=== PATIENT | female | born 1930 | race Caucasian/White ===

== ENCOUNTER 2016-07-17 16:25 | Emergency (ER) | payer MEDICARE ==
[~2016-07-17] VITALS: Ht 170.2 cm; Wt 110.9 kg
[2016-07-17 16:33] VITALS: BP 124/73; PULSE 72; RESP 20; O2SAT 95
--- NOTE | 2016-07-17 18:35 | DRSVH ---
PROCEDURE: X-RAY CHEST, TWO VIEWS ([id number]) INDICATIONS: cough x2 wks TECHNIQUE: 2 views of the chest were acquired. COMPARISON: None. FINDINGS: Surgical changes and devices: None. Lungs and pleura: No pleural effusions or pneumothorax. Lungs are clear. Mediastinum: Mediastinal contours are normal. Heart size is normal. Bones and chest wall: No suspicious bony abnormalities. Soft tissues appear unremarkable. IMPRESSION: No acute disease Dictated by: Mikie Jacobsen M.D. on 07/17/2016 at 18:34 Approved by: Mikie Jacobsen M.D. on 07/17/2016 at 18:34
--- NOTE | 2016-07-17 19:40 | ED.REPORT ---
HPI-General Illness Date of Service Jul 17, 2016 ED Provider: Gigi Bosch DO An 86 year old female with a history of hypertension presents to the ED complaining of a dry cough. This is accompanied by weakness, lethargy, and a lack of appetite. These symptoms began two weeks ago and have been persistent since. The cough is present regardless of the pt's activity level or position. She denies productive cough, fever, vomiting, diarrhea, chest pain, or shortness of breath, as well as any history of asthma or emphysema. The pt was seen by her PCP and prescribed two rounds of different antibiotics, neither of which has improved her condition. Nursing Notes Stated Complaint: COUGH Chief Complaint: FLU/Cold Symptoms Nursing Notes Reviewed: Yes Allergies: Coded Allergies: Sulfa (Sulfonamide Antibiotics) (Verified Allergy, Unknown, 07/17/16) General Time Seen by MD: 19:40 Chief Complaint Cough Hx Obtained From: Patient Arrived By: Walk-in Sudden in Onset?: No Onset Occurred: More than a week ago... (2 weeks) Symptom Duration: Since onset Recent Healthcare: No recent hospitalization, Recent doctor visit Similar Sx Previous: No Past Medical History Past Medical History hypertension Past Surgical History right hip replacement Smoking History Unknown if Ever Smoker Social History Other Social History: Good social support Ambulatory Status Independent Review of Systems loss of appetite Full Review of Systems Constitutional: Reports: Lethargy, Weakness - generalized, Denies: Fever Respiratory: Reports: Non-productive cough, Denies: Prod cough, clear, Shortness of breath Cardiovascular: Denies: Chest pain GI: Denies: Diarrhea, Nausea, Vomiting Musculoskeletal: Denies: Back pain, Neck pain Skin: Denies Rash Complete sys rev & neg: except as marked. Physical Exam Vital Signs Vital Signs Date Time Temp Pulse Resp B/P Pulse Ox O2 Delivery O2 Flow Rate FiO2 07/17/16 23:15 36.8 88 22 127/85 96 Room Air 07/17/16 21:30 36.7 75 17 122/57 95 Room Air 07/17/16 20:54 71 20 97 Room Air 07/17/16 16:33 36.7 72 20 124/73 95 Room Air Initial VS: Reviewed General/Constitutional: Awake, Alert Head / Eyes: Atraumatic, Normocephalic, PERRL, EOMI ENT: Atraumatic, Airway patent, Mucous membranes moist Neck: Atraumatic, Supple, Full range of motion Respiratory / Chest: Atraumatic, Breath sounds = bilat, No respiratory distress wheezing in all lung baer Cardiovascular: Heart rate NL, Regular rhythm, Heart sounds NL Abdomen: Atraumatic, Soft, Non-tender Back: Atraumatic, Full range of motion Upper Extremities Upper Extremity / MS: Atraumatic, Full range of motion Lower Extremity / Pelvis / MS: Atraumatic, Full range of motion Skin: Atraumatic, Color NL, No rash, Warm, Dry Neurologic: Oriented X3, Speech NL, No motor deficits, No sensory deficits Psychiatric: Affect NL, Mood NL Interpretation & Diagnostics Lab Results Interpretation Result Diagram: 07/17/16210107/17/162101 Test 07/17/16 21:02 White Blood Count 7.5th/mm3 (3.8-10.1) Red Blood Count 4.41mil/mm3 (3.90-5.20) Hemoglobin 14.4g/dL (12.0-15.6) Hematocrit 41.8% (35.0-46.0) Mean Corpuscular Volume 94.8fL (81-100) Mean Corpuscular Hemoglobin 32.7pg (27.0-35.0) Mean Corpuscular Hemoglobin Concent 34.4% (32.0-37.0) Red Cell Distribution Width 12.9% (12.3-15.4) Platelet Count 177bil/L (150-400) Neutrophils (%) (Auto) 52.8% (40-74) Lymphocytes (%) (Auto) 36.2% (14-46) Monocytes (%) (Auto) 8.5% (4-12) Eosinophils (%) (Auto) 1.7% (0-5) Basophils (%) (Auto) 0.7% (0-3) D-Dimer < 0.5mg/L (<0.50) Sodium Level 136mEq/L (134-144) Potassium Level 3.3mEq/L (3.5-5.2) Chloride Level 91mEq/L (97-108) Carbon Dioxide Level 26mmol/L (18-29) Blood Urea Nitrogen 26mg/dL (8-27) Creatinine 1.11mg/dL (0.57-1.00) Estimat Glomerular Filtration Rate 67mL/min (>59) Glucose Level 127mg/dL (60-99) Lactic Acid Level 2.4mmol/L (0.4-2.0) Calcium Level 8.9mg/dL (8.5-10.1) Magnesium Level 1.8mg/dL (1.6-2.6) Total Bilirubin 0.8mg/dL (0.0-1.2) Aspartate Amino Transf (AST/SGOT) 26U/L (0-50) Alanine Aminotransferase (ALT/SGPT) 20U/L (0-32) Alkaline Phosphatase 83U/L (25-165) Troponin T 0.010ug/L (0.0-0.011) Pro-B-Type Natriuretic Peptide 291.3pg/mL (0-738) Total Protein 7.4g/dL (6.4-8.4) Albumin 3.6g/dL (3.4-5.0) Lipase 23U/L (13-60) Procalcitonin 0.07ng/mL (0.00-0.08) Pulse Oximetry Interpretation Pulse Oximetry Interpretation: 95% on room air ECG Interpretation ECG Interpretation: normal sinus rhythm with a rate of 85 atrial premature complexes in couplets Time: 20:05 Interpreted by: ED physician X-Ray Chest Interpretation Chest Xray Interpretation: IMPRESSION: No acute disease Dictated by: Mikie Jacobsen M.D. on 07/17/2016 at 18:34 Approved by: Mikie Jacobsen M.D. on 07/17/2016 at 18:34 Interpretation / Wet Read by: Interpret - Radiologist Re-Eval/Medical Decision Med Decision/Clinical Course This is a delightful 86-year-old female who presents with cough. She has been coughing intermittently for at least 2 weeks. Her doctors placed her in 2 courses of antibiotics. She still has a cough that at times is productive sputum. She has no chest pain. She has no shortness of breath. There does not appear to be any exertional component to her cough. She will cough a bit more at nighttime but not necessarily when she is lying down. On examination she had stable vitals. She had wheezing crackles in both upper lung baer. Respiratory exam was very benign. She did not have JVD. She did not have an S3 gallop. She did not have hepatojugular reflex. She does not have extremity edema consistent with heart failure. X-ray was reassuring. D-dimer was negative. Troponin was negative and again this is after 2 weeks of symptoms. BNP was not markedly elevated. No signs of heart failure, pulmonary why her MD. She responded nicely to a DuoNeb. I think she has bronchitis with bronchospasm. I will place her on a course of Omnicef because she has been on a macrolide twice now. Short course of prednisone as well as an inhaler and I recommend close outpatient follow-up. She felt much better at discharge and her lungs were essentially clear. No signs sepsis. Time of Eval: 22:38 Patient Status: Condition improved Re-Evaluation/Progress Note: Pt rechecked, who is feeling much better and prepared for discharge. The plan for discharge is discussed. The pt understands and agrees with the plan. All questions are addressed at this time. Counseled Regarding: Diagnosis, Lab results, Need for follow-up, When/why to return to ED Discharge & Departure Primary Impression: Upper respiratory infection URI type: acute laryngotracheitis Qualified Code: J04.2 - Acute laryngotracheitis Disposition: Home Discharge Condition All VS Reviewed: Yes Condition: Stable Patient Instructions: Acute Bronchitis (DC) Additional Instructions: Take Omnicef twice daily for 7 days. Prednisone daily for 3 days. Albuterol 2 puffs every 2-3 hours for cough and wheezing. [place] one every 6 hours if the cough is severe. Do not drive or drink alcohol or consume acetaminophen while taking the [place]. The [place] can and will be constipating so take with a stool softener. Call your primary care physician in the morning to set up a follow- up. Return if any problems or any worsening symptoms. The heart blood tests and chest x-ray were all reassuring. Your blood clot blood test was negative. Referrals: Jahaira Hickman MD (PCP) Scribe Attestation Portions of this note were transcribed by Susy Ascencio. I, Dr. Bosch personally performed the history, physical exam and medical decision-making; I reviewed and confirmed the accuracy of the information in the transcribed note. Signed by: Deshawn Ang, 07/17/2016 and [id number]. copies to: Jahaira Hickman MD, Todd P DO Jul 17, 2016 19:40 SUSY ASCENCIO Jul 17, 2016 20:02
[2016-07-17] MEDS ORDERED: Albuterol-Ipratropium 3 mL Inhalation Solution NEB ONE (20:00)
[2016-07-17 20:54] VITALS: PULSE 71; RESP 20; O2SAT 97
[2016-07-17 21:14] LABS: BASOPHILS % (AUTO) 0.7 % (0-3); EOSINOPHILS % (AUTO) 1.7 % (0-5); MONOCYTES % (AUTO) 8.5 % (4-12); Mean Corpuscular Hemoglobin 32.7 pg (27.0-35.0); Mean Corpuscular Volume 94.8 fL (81-100); NEUTROPHILS % (AUTO) 52.8 % (40-74); Platelet Count 177 bil/L (150-400)
[2016-07-17 21:30] VITALS: BP 122/57; PULSE 75; RESP 17; O2SAT 95
[2016-07-17 21:45] LABS: TROPONIN T 0.01 ug/L (0.0-0.011)
[2016-07-17 21:56] LABS: Magnesium 1.8 mg/dL (1.6-2.6)
[2016-07-17] MEDS ORDERED: HYDROcodone-APAP 5-325 mg Tablet PO ONE (22:25)
[2016-07-17] MEDS ORDERED: Codeine-guaiFENesin 5 mL Syrup PO ONE (22:25)
[2016-07-17] MEDS ORDERED: guaiFENesin 20 mg/mL 10 mL Syrup PO ONE (22:35)
[2016-07-17] MEDS ORDERED: _HYDROcodone/APAP 5-325 mg Tablet PO PRN (22:45)
[2016-07-17] MEDS ORDERED: _Albuterol-HFA 60 Puff Inhaler INHALATION PRN (22:45)
[2016-07-17 23:15] VITALS: BP 127/85; PULSE 88; RESP 22; O2SAT 96
== END 2016-07-17 23:17 | disposition home or self-care (01) ==
LOC: SED 16:25
DX: J04.2 Acute laryngotracheitis (principal); R53.1 Weakness; R53.83 Other fatigue; R63.0 Anorexia; I10 Essential (primary) hypertension; Z88.2 Allergy status to sulfonamides
CPT/HCPCS: 71020; 80053; 82308; 83605; 83690; 83735; 83880; 84484; 85025; 85379; 87040; 87804; 93005; 94640; 94664; 99285; J7620

== ENCOUNTER 2016-12-12 17:43 | Emergency (ER) | payer MEDICARE ==
[~2016-12-12] VITALS: Ht 170.2 cm; Wt 104.5 kg
[2016-12-12 17:47] VITALS: BP 182/75; PULSE 84; RESP 10; O2SAT 100
[2016-12-12 18:20] LABS: BASOPHILS % (AUTO) 0.5 % (0-3); EOSINOPHILS % (AUTO) 2.5 % (0-5); MONOCYTES % (AUTO) 10.5 % (4-12); Mean Corpuscular Hemoglobin 32.3 pg (27.0-35.0); Mean Corpuscular Volume 97.3 fL (81-100); NEUTROPHILS % (AUTO) 45.8 % (40-74); Platelet Count 214 bil/L (150-400)
--- NOTE | 2016-12-12 19:40 | ED.REPORT ---
HPI-General Illness Date of Service Dec 12, 2016 ED Provider: Alex Regalado DO Pt is a 86 year old female with a history of HTN who presents to the ED complaining of vaginal bleeding onset 2 weeks ago. She c/o associated chills. She denies pain, cramping, hematochezia, lightheadedness, dizziness, and weakness. She reports that she has passed 6 large blood clots today. Per pt's great niece, the pt presented to [facility] with vaginal spotting and she was referred to a urologist and obgyn in 06/29. The niece reports that the pt had an endometrial biopsy at [facility] that came out negative. She states that the vaginal bleed stopped after that point up until 2 weeks ago. Pt denies hormone usage. Pt states that she is also incontinent of stool and urine, however this is baseline for her. She currently resides at assisted living. 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 (2 weeks) Symptom Duration: Since onset Severity: Current: No pain currently Severity: Maximum: No pain Recent Healthcare: No recent doctor visit, No recent hospitalization Similar Sx Previous: Yes Past Medical History Past Medical History Vaginal bleeding Reports: Hypertension Past Surgical History right hip replacement Smoking History Unknown if Ever Smoker Social History Alcohol Use: "Social" Drug Use: Denies drug use Other Social History: Good social support Ambulatory Status Independent Review of Systems Denies cramping Full Review of Systems Constitutional: Reports: Chills Cardiovascular: Denies: Chest pain GI: Denies: Abdominal pain, Hematochezia Female: Reports: Vaginal bleeding - abnl Musculoskeletal: Denies: Back pain Neurologic: Denies: Dizziness, Lightheaded, Weakness Complete sys rev & neg: except as marked. Physical Exam Vital Signs Vital Signs Date Time Temp Pulse Resp B/P Pulse Ox O2 Delivery O2 Flow Rate FiO2 12/12/16 21:34 36.6 65 20 133/75 96 Room Air 12/12/16 17:47 35.6 84 10 182/75 100 Initial VS: Reviewed Head / Eyes: Atraumatic, Normocephalic Neck: Supple, Full range of motion Respiratory: Breath sounds normal, Clear to auscultation, No respiratory distress Abdomen / GI: Soft, Non-tender Extremities: Vascular intact, Neuro intact Skin: Warm, Dry, No cyanosis Neurologic: Alert, Oriented, Nonfocal Psychiatric: Mood/affect normal, Behavior normal General/Constitutional: Awake, Alert Cardiovascular: Heart rate NL, Regular rhythm, Heart sounds NL Lower Ext Edema: Positive: Bilateral 1+, Pitting Female Genitourinary: Electrical & Instrumentation Supervisor present Small amount of dark blood in the vaginal canal coming from cervix. No polyps or lacerations seen on exam. No active/brisk bleeding from cervical canal Interpretation & Diagnostics Lab Results Interpretation Result Diagram: 12/12/16181412/12/161814 Test 12/12/16 18:15 White Blood Count 6.4th/mm3 (3.8-10.1) Red Blood Count 4.15mil/mm3 (3.90-5.20) Hemoglobin 13.4g/dL (12.0-15.6) Hematocrit 40.4% (35.0-46.0) Mean Corpuscular Volume 97.3fL (81-100) Mean Corpuscular Hemoglobin 32.3pg (27.0-35.0) Mean Corpuscular Hemoglobin Concent 33.2% (32.0-37.0) Red Cell Distribution Width 12.8% (12.3-15.4) Platelet Count 214bil/L (150-400) Neutrophils (%) (Auto) 45.8% (40-74) Lymphocytes (%) (Auto) 40.5% (14-46) Monocytes (%) (Auto) 10.5% (4-12) Eosinophils (%) (Auto) 2.5% (0-5) Basophils (%) (Auto) 0.5% (0-3) Sodium Level 139mEq/L (134-144) Potassium Level 3.6mEq/L (3.5-5.2) Chloride Level 97mEq/L (97-108) Carbon Dioxide Level 26mmol/L (18-29) Blood Urea Nitrogen 24mg/dL (8-27) Creatinine 1.07mg/dL (0.57-1.00) Estimat Glomerular Filtration Rate 69mL/min (>59) Glucose Level 126mg/dL (60-99) Calcium Level 9.3mg/dL (8.5-10.1) Total Bilirubin 0.5mg/dL (0.0-1.2) Aspartate Amino Transf (AST/SGOT) 16U/L (0-50) Alanine Aminotransferase (ALT/SGPT) 12U/L (0-32) Alkaline Phosphatase 101U/L (25-165) Total Protein 7.3g/dL (6.4-8.4) Albumin 3.8g/dL (3.4-5.0) Re-Eval/Medical Decision Med Decision/Clinical Course 86-year-old with recurrent vaginal bleeding presenting for evaluation. The source of the bleeding was confirmed with physical exam today as uterine bleeding. Endometrial biopsy 6 months ago was negative, however given the time interval a repeat endometrial biopsy may be indicated. This was discussed with Dr. Chaney who agrees and recommends patient follow up with him in clinic. CBC does not show severe anemia and vital signs are stable. Patient has no pain. Patient is reassured by the blood work and understands the plan and need for follow-up. I advised she return if she develops any lightheadedness, weakness, or syncope Source of Hx: Old records Time of Eval: 20:58 Re-Evaluation/Progress Note: Pt rechecked. Performed pelvic exam with consent. Informed of plan to consult with percussion instrument tuner to set up an appointment. Time of Eval: 21:20 Re-Evaluation/Progress Note: Pt rechecked. Informed pt of planfor discharge. Pt understands and agrees with plan for discharge. F/U instructions and RTER warnings given. All questions addressed. Consultation : Referral / Consult Name: Jorge Chaney MD Call Returned at: 21:15 [place] Teacher: Agrees with eval, Agrees with plan Note: Consult with OBGYN. Discussed pt's case. He will arrange for a follow up for an additional biopsy. Counseled Regarding: Diagnosis, Lab results, Need for follow-up, When/why to return to ED Discharge & Departure Primary Impression: Vaginal bleeding, abnormal Additional Impression: Postmenopausal bleeding Disposition: Home Discharge Condition All VS Reviewed: Yes Condition: Stable Patient Instructions: Postmenopausal Bleeding (GEN) Additional Instructions: Thank you for entrusting us with your care. Follow up with Dr. Jorge Chaney within one week as you will need another endometrial biopsy. There are no signs of anemia today. Please return if your symptoms worsen or you develop dizziness, weakness, or severe bleeding. Referrals: Jahaira Hickman MD (PCP) Jorge Chaney MD Attestation Portions of this note were transcribed by Sandy Augustin. I, Dr. Regalado personally performed the history, physical exam and medical decision-making; I reviewed and confirmed the accuracy of the information in the transcribed note. Signed by: Deshawn Helton, 12/12/16. copies to: Jorge Chaney MD; Jahaira Hickman MD, Gary R DO Dec 12, 2016 19:39 Snady Diaz Dec 12, 2016 21:07
[2016-12-12 21:34] VITALS: BP 133/75; PULSE 65; RESP 20; O2SAT 96
== END 2016-12-12 21:35 | disposition home or self-care (01) ==
LOC: SED 17:43
DX: N95.0 Postmenopausal bleeding (principal); I10 Essential (primary) hypertension; Z88.2 Allergy status to sulfonamides